=== PATIENT | female | born 1960 | race Caucasian/White ===

== ENCOUNTER → 2018-01-31 | Outpatient (CLI) | payer OTHER ==
[2018-01-31 17:28] LABS: Ionized Calcium 6.3 mg/dL (4.5-5.3)
[2018-02-01 02:22] LABS: Parathyroid Hormone Intact 157.9 pg/mL (14.0-72.0)
[2018-02-01 02:36] LABS: Calcium 24 Hour,Urine 205.7 mg/24Hr (100.0-250.0)
[2018-02-01 02:41] LABS: T4, Free (Free Thyroxine) 1.6 ng/dL (0.80-1.80)
[2018-02-01 02:42] LABS: Creatinine 24 Hour,Urine 0.73 g/24Hr (0.80-1.80)
[2018-02-01 02:49] LABS: Albumin 4.6 g/dL (3.80-4.90); Albumin/Globulin Ratio 2.56 (1.20-2.10); Anion Gap 9.4 mmol/L (4.00-12.00); Calcium 11.2 mg/dL (8.7-10.3); Carbon Dioxide 23.6 mmol/L (21.6-31.8); Globulin 1.8 g/dL (2.1-3.7); Magnesium 1.7 mg/dL (1.5-2.4); Phosphorus 2.7 mg/dL (2.4-5.1); Potassium 4.7 mmol/L (3.5-5.5); Total Bilirubin 0.4 mg/dL (0.3-1.2); Total Protein 6.4 g/dL (6.2-8.2)
== END | disposition home or self-care (01) ==
LOC: LABWHC1 15:46
PROVIDERS: ATTEND Internal Medicine
DX: E83.52 Hypercalcemia (principal); E55.9 Vitamin D deficiency, unspecified
CPT/HCPCS: 36415; 80053; 81050; 82306; 82330; 82340; 82570; 83735; 83970; 84100; 84439; 84443

== ENCOUNTER → 2018-05-14 | Outpatient (CLI) | payer OTHER | END | disposition home or self-care (01) | LOC: LABWHC1 15:53 | PROVIDERS: ATTEND Internal Medicine | DX: E21.3 Hyperparathyroidism, unspecified (principal) | CPT/HCPCS: 36415; 82310; 83970 ==

== ENCOUNTER → 2018-09-13 | Outpatient (CLI) | payer OTHER ==
[2018-09-13 23:04] LABS: LDL Cholesterol,Calculated 96.6 mg/dL (0.0-131.0); VLDL Calculation 22.4 mg/dL (5.00-40.00)
== END | disposition home or self-care (01) ==
LOC: LABWHC1 14:09
PROVIDERS: ATTEND Family Medicine
DX: E78.5 Hyperlipidemia, unspecified (principal)
CPT/HCPCS: 36415; 80061

== ENCOUNTER → 2020-05-21 | Outpatient (CLI) | payer OTHER ==
[2020-05-21 23:18] LABS: Basophils # (A) 0.05 X 10*3/uL (0.00-0.10); Basophils % (A) 0.4 %; Eosinophils # (A) 0.28 X 10*3/uL (0.04-0.35); Eosinophils % (A) 2.5 %; HCT 43.8 % (37.2-46.3); HGB 13.8 g/dL (12.0-15.0); Lymphocytes # (A) 1.01 X 10*3/uL (0.90-5.00); MCH 31.9 pg (27.0-32.0); MCHC 31.5 g/dL (32.0-37.0); MCV 101.4 fL (80.0-97.0); Mean Platelet Volume 10.4 fL (9.5-12.2); Monocytes # (A) 0.82 X 10*3/uL (0.20-1.00); Monocytes % (A) 7.3 %; Neutrophils # (A) 8.95 X 10*3/uL (1.80-7.70); Neutrophils % (A) 80.1 %; Platelet Count 265 X 10*3/uL (140-440); RBC 4.32 X 10*6/uL (4.10-5.20); WBC 11.19 X 10*3/uL (4.50-10.00)
[2020-05-22 02:06] LABS: African American GFR (CKD) 116.4 (60.0-200.0); Albumin/Globulin Ratio 1.74 (1.60-3.17); BUN/Creat Ratio 36.67 Ratio (12.00-20.00); Calcium 9.4 mg/dL (8.7-10.3); Chol/HDL Ratio 2.98; Globulin 2.3 g/dL (1.6-3.3); LDL Cholesterol,Calculated 100.4 mg/dL (0.0-131.0); Non-African American GFR(CKD) 100.5 (60.0-200.0); Total Bilirubin 0.3 mg/dL (0.3-1.2); Total Protein 6.3 g/dL (6.2-8.2); VLDL Calculation 30.6 mg/dL (5.00-40.00)
== END | disposition home or self-care (01) ==
LOC: LABWHC1 15:21
PROVIDERS: ATTEND Family Medicine
DX: I10 Essential (primary) hypertension (principal); M25.50 Pain in unspecified joint; J44.9 Chronic obstructive pulmonary disease, unspecified; Z12.31 Encounter for screening mammogram for malignant neoplasm of breast; E78.5 Hyperlipidemia, unspecified; M06.9 Rheumatoid arthritis, unspecified; Z12.11 Encounter for screening for malignant neoplasm of colon
CPT/HCPCS: 36415; 80053; 80061; 85025

== ENCOUNTER → 2022-04-05 | Outpatient (CLI) | payer OTHER ==
--- NOTE | 2022-04-05 17:27 | CT ---
EXAMINATION TYPE: CT chest wo con DATE OF EXAM: 04/05/2022 COMPARISON: None HISTORY: dyspnea and pneumonia CT DLP: 126.20 mGycm, Automated exposure control for dose reduction was used. CONTRAST: Performed injected with 0 mL of Isovue 300. TECHNIQUE: Axial images were obtained at 5 mm thick sections. Reconstructed images are reviewed on t he computer in the coronal plane. FINDINGS: Portion of the thyroid visualized is normal. There is a small area of pneumonitis in the posterior left lung. Additional milder scattered infiltra velia are at the lung base. Series 4 image 39. There is increased density along the mediastinal border within the lingula. Series 4 image 38. This area measures 2.7 cm. Atelectasis and pneumonia should be considered. Underlying mass is not excluded. There is a nodule measuring 0.5 cm in the lingula. Seri es 4 image 35. Streak opacity extending to the lung periphery measuring 1.3 cm. Series 4 image 33. Th ere is an irregular area of increased density measuring 1.7 x 1.2 cm in the upper medial right lung. Series 4 image 23. There is a large curvilinear area of increased density measuring 2.2 x 5.1 cm in t he anterior left upper lobe. Series 4 image 13. No enlarged mediastinal or hilar adenopathy is evident. The ascending aorta diameter at the level o f the main pulmonary artery is 4.1 cm. The main pulmonary artery diameter at the bifurcation is 2.7 cm. Mild coronary artery calcification is present. Limited CT sections are obtained through the upper abdomen. There is a nonobstructing small renal sto ne in the superior pole right kidney IMPRESSIONS: 1. Curvilinear density at the left apex with multiple additional areas of pneumonitis to the left and right mid and lower lung messina. Neoplasm should be considered. Pneumonia would be within the differ ential. Treatment and close follow-up is recommended.
== END | disposition home or self-care (01) ==
LOC: RADCTMAIN 14:04
PROVIDERS: ATTEND Internal Medicine Pulmonary Disease
DX: J18.9 Pneumonia, unspecified organism (principal); R06.00 Dyspnea, unspecified; R91.8 Other nonspecific abnormal finding of lung field
CPT/HCPCS: 71250